=== PATIENT | male | born 1985 | race Caucasian/White ===

== ENCOUNTER 2019-05-18 18:35 | Emergency (ER) | payer OTHER ==
[~2019-05-18] VITALS: Ht 188 cm; Wt 83.9 kg
[2019-05-18] MEDS ORDERED: Percocet 5-3251 EACH PO ×2 (19:56→22:51)
[2019-05-18] MEDS ORDERED: Augmentin 875-1 EACH PO ×2 (19:56→22:51)
== END 2019-05-18 20:23 | disposition home or self-care (01) ==
LOC: ER 18:35
DX: S02.32XA Fracture of orbital floor, left side, initial encounter for closed fracture (principal); S02.40FA Zygomatic fracture, left side, initial encounter for closed fracture; M54.6 Pain in thoracic spine; Y04.8XXA Assault by other bodily force, initial encounter; F17.210 Nicotine dependence, cigarettes, uncomplicated
CPT/HCPCS: 70486; 72040; 72070; 96372; 99284-25; J1885